=== PATIENT | female | born 1980 | race Caucasian/White ===

== ENCOUNTER 2018-09-02 02:33 | Emergency (ER) | payer MEDICAID, SELFPAY ==
[~2018-09-02] VITALS: Ht 167.6 cm; Wt 75.0 kg
[2018-09-02 02:35] VITALS: BP 124/60
[2018-09-02] MEDS ORDERED: bacitracin 15gm ointment TP ONE (03:20)
[2018-09-02] MEDS ORDERED: TETanus/Pertussis (Acell)/Diphther VAC/PF (Tdap-Adult) 0.5ml syringe IM ONE (03:20)
== END 2018-09-02 05:07 | disposition home or self-care (01) ==
LOC: ER 02:34
DX: S91.012A Laceration without foreign body, left ankle, initial encounter (principal); S01.81XA Laceration without foreign body of other part of head, initial encounter; S01.112A Laceration without foreign body of left eyelid and periocular area, initial encounter; F15.90 Other stimulant use, unspecified, uncomplicated; V29.88XA Motorcycle rider (driver) (passenger) injured in other specified transport accidents, initial encounter; Y93.55 Activity, bike riding; Y92.488 Other paved roadways as the place of occurrence of the external cause; Y99.8 Other external cause status
CPT/HCPCS: 12002; 70450; 70486; 90471; 90715; 99284

== ENCOUNTER 2018-09-19 23:53 | Emergency (ER) | payer MEDICAID ==
[~2018-09-19] VITALS: Ht 167.6 cm; Wt 71.4 kg
[2018-09-20 01:36] VITALS: BP 118/95
== END 2018-09-20 01:37 | disposition home or self-care (01) ==
LOC: ER 23:53
DX: S91.012D Laceration without foreign body, left ankle, subsequent encounter (principal); S01.81XD Laceration without foreign body of other part of head, subsequent encounter; F15.90 Other stimulant use, unspecified, uncomplicated; Z48.02 Encounter for removal of sutures; V29.88XD Motorcycle rider (driver) (passenger) injured in other specified transport accidents, subsequent encounter
CPT/HCPCS: 99283

== ENCOUNTER 2025-04-16 11:16 | Outpatient (CLI) | payer MEDICAID ==
--- NOTE | 2025-04-16 12:42 | RADIOLOGY REPORT ---
PROCEDURE: MRI cervical spine without contrast. INDICATION: RADICULOPATHY, CERVICAL REGION COMPARISON: None. TECHNIQUE: MRI of the cervical spine without intravenous contrast utilizing multiplanar, multisequence technique. FINDINGS: The alignment of the cervical spine vertebral bodies is preserved. The vertebral body heights are maintained. The intervertebral disc spaces are maintained in height and signal characteristics. The bone marrow signal is homogenous and unremarkable. The cervical spinal cord is normal in signal characteristics and caliber. There is encephalomalacia in the right cerebellar hemisphere. No cerebellar tonsillar herniation. Paraspinal muscles are unremarkable. At the C2-C3 level, there is no evidence of central spinal canal or neuroforaminal stenosis. At the C3-C4 level, there is no evidence of central spinal canal or neuroforaminal stenosis. At the C4-C5 level, there is posterior disc osteophyte complex. There is mild spinal stenosis. There is severe bilateral neural foraminal stenosis. At the C5-C6 level, there is posterior disc osteophyte complex. No significant central spinal stenosis. There is severe right and moderate to severe left neural foraminal stenosis. At the C6-C7 level, there is posterior disc osteophyte complex. There is mild spinal stenosis. There is mild right and moderate left neural foraminal stenosis. At the C7-T1 level, there is no evidence of central spinal canal stenosis. Right neural foramina is patent. Mild left neural foraminal stenosis. Other: There are a few rounded T2 hyperintense structures in the thyroid the largest in the right lobe measuring 1.0 cm. Multiple lymph nodes posterior to the bilateral parotid glands. IMPRESSION: 1. Multilevel degenerative changes in the cervical spine. This includes mild spinal stenosis at C4-C5 and C6-C 2. There is severe bilateral neural foraminal stenosis at C4-C5, severe right and moderate to severe left neural foraminal stenosis at C5-C6 and moderate left neural foraminal stenosis at C6-C 3. No abnormal signal in the cervical spinal cord. 4. Right cerebellar encephalomalacia. 5. Multinodular thyroid. Thyroid ultrasound recommended for further evaluation. 6. Prominent lymph nodes noted posterior to the parotid glands. Parotid ultrasound may be obtained for further evaluation.
== END 2025-04-16 23:59 | disposition home or self-care (01) ==
LOC: MRI02 11:16
PROVIDERS: ATTEND Student in an Organized Health Care Education/Training Program
DX: M47.22 Other spondylosis with radiculopathy, cervical region (principal); M48.02 Spinal stenosis, cervical region; G93.89 Other specified disorders of brain; E04.2 Nontoxic multinodular goiter; R59.0 Localized enlarged lymph nodes
CPT/HCPCS: 72141